=== PATIENT | female | born 1980 | race American Indian/Alaskan Native ===

== ENCOUNTER 2016-12-12 08:52 | Emergency (ER) | payer SELFPAY ==
[2016-12-12 09:16] VITALS: BP 126/76
--- NOTE | 2016-12-12 09:31 | Emergency Department Report ---
HPI - General Chief Complaint: Allergic Reaction Time Seen by Provider: 12/12/16 09:21 - HPI HPI: Patient presents to the ER complaining of allergic reaction for the past 2 days. Patient complains of itching rash to upper extremities and torso. She denies swelling of face and lips tongue or throat, also denies shortness of breath or wheezing. ED Past Medical Hx - Past Medical History Additional medical history: Anemia - Surgical History Past Surgical History?: No - Social History Smoking Status: Never Smoker Substance Use Type: None - Medications Home Medications: Home Medications Medication Instructions Recorded Confirmed Last Taken Type hydrOXYzine HCL [Atarax] 25 mg PO Q6HR PRN #25 tablet 12/12/16 Unknown Rx methylPREDNISolone [Medrol] 4 mg PO QAM #1 tab.ds.pk 12/12/16 Unknown Rx ED Review of Systems ROS: Stated complaint: POSSIBLE ALLERGIC REACTION Other details as noted in HPI Constitutional: denies: chills, fever Eyes: denies: eye pain, eye discharge, vision change ENT: denies: ear pain, throat pain Respiratory: denies: cough, shortness of breath, SOB with exertion, SOB at rest , stridor, wheezing Cardiovascular: denies: chest pain, palpitations, dyspnea on exertion Gastrointestinal: denies: nausea, vomiting Skin: rash, pruritus Physical Exam - Physical Exam Vital Signs: Vital Signs 12/12/16 09:14 Temperature 98.2 F Pulse Rate 89 Respiratory 18 Rate Blood Pressure 126/76 O2 Sat by Pulse 100 Oximetry ED Course Vital Signs 12/12/16 09:14 Temperature 98.2 F Pulse Rate 89 Respiratory 18 Rate Blood Pressure 126/76 O2 Sat by Pulse 100 Oximetry Critical care attestation.: If time is entered above; I have spent that time in minutes in the direct care of this critically ill patient, excluding procedure time. ED Disposition Clinical Impression: Allergic reaction Disposition: DISCHARGED TO HOME OR SELFCARE Is pt being admited?: No Condition: Stable Instructions: Allergies (ED) Prescriptions: hydrOXYzine HCL [Atarax] 25 mg PO Q6HR PRN #25 tablet PRN Reason: Itching methylPREDNISolone [Medrol] 4 mg PO QAM #1 tab.ds.pk Referrals: PRIMARY CARE, [Primary Care Provider] - 3-5 Days Forms: Work/School Release Form(ED)
--- NOTE | 2016-12-12 09:39 | Emergency Department Report ---
ED General Adult HPI - General Chief complaint: Allergic Reaction Stated complaint: POSSIBLE ALLERGIC REACTION Time Seen by Provider: 12/12/16 09:21 Source: patient Mode of arrival: Ambulatory Limitations: No Limitations - History of Present Illness Initial comments: Patient presents to the ER complaining of allergic reaction for the past 2 days. Patient complains of itching rash to upper extremities and torso. She denies swelling of face and lips tongue or throat, also denies shortness of breath or wheezing. - Related Data Previous Rx's Medication Instructions Recorded Last Taken Type hydrOXYzine HCL [Atarax] 25 mg PO Q6HR PRN #25 tablet 12/12/16 Unknown Rx methylPREDNISolone [Medrol] 4 mg PO QAM #1 tab.ds.pk 12/12/16 Unknown Rx Allergies Allergy/AdvReac Type Severity Reaction Status Date / Time No Known Allergies Allergy Unverified 12/12/16 09:14 ED Review of Systems ROS: Stated complaint: POSSIBLE ALLERGIC REACTION Other details as noted in HPI Constitutional: denies: chills, fever Eyes: denies: eye pain, eye discharge, vision change ENT: denies: ear pain, throat pain Respiratory: denies: cough, orthopnea, shortness of breath, SOB with exertion, SOB at rest, stridor, wheezing Cardiovascular: denies: chest pain, palpitations, dyspnea on exertion Musculoskeletal: denies: myalgia Skin: rash, pruritus ED Past Medical Hx - Past Medical History Additional medical history: Anemia - Surgical History Past Surgical History?: No - Social History Smoking Status: Never Smoker Substance Use Type: None - Medications Home Medications: Home Medications Medication Instructions Recorded Confirmed Last Taken Type hydrOXYzine HCL [Atarax] 25 mg PO Q6HR PRN #25 tablet 12/12/16 Unknown Rx methylPREDNISolone [Medrol] 4 mg PO QAM #1 tab.ds.pk 12/12/16 Unknown Rx ED Physical Exam - General Limitations: No Limitations - Head Head exam: Present: normocephalic - Eye Eye exam: Present: normal appearance - ENT ENT exam: Present: normal orophraynx, mucous membranes moist - Neck Neck exam: Absent: tenderness, meningismus, lymphadenopathy - Respiratory Respiratory exam: Present: normal lung sounds bilaterally. Absent: respiratory distress, wheezes, rales, rhonchi, stridor - Cardiovascular Cardiovascular Exam: Present: regular rate - Skin Skin exam: Present: warm, dry, intact, rash (very mild maculopapular rash to upper extremities and torso. No urticaria, no erythema, warmth or tenderness. No lymphangitis or lymphadenopathy noted.) ED Course Vital Signs 12/12/16 09:14 Temperature 98.2 F Pulse Rate 89 Respiratory 18 Rate Blood Pressure 126/76 O2 Sat by Pulse 100 Oximetry Critical care attestation.: If time is entered above; I have spent that time in minutes in the direct care of this critically ill patient, excluding procedure time. ED Disposition Clinical Impression: Allergic reaction Disposition: DISCHARGED TO HOME OR SELFCARE Is pt being admited?: No Does the pt Need Aspirin: No Condition: Stable Instructions: Allergies (ED) Prescriptions: hydrOXYzine HCL [Atarax] 25 mg PO Q6HR PRN #25 tablet PRN Reason: Itching methylPREDNISolone [Medrol] 4 mg PO QAM #1 tab.ds.pk Forms: Work/School Release Form(ED)
== END 2016-12-12 09:52 | disposition home or self-care (01) ==
LOC: ED 08:52
DX: T78.40XA Allergy, unspecified, initial encounter (principal); Z86.2 Personal history of diseases of the blood and blood-forming organs and certain disorders involving the immune mechanism; Y92.9 Unspecified place or not applicable
CPT/HCPCS: 99282